=== PATIENT | female | born 1945 | race Caucasian/White ===

== ENCOUNTER 2017-12-22 07:58 | Outpatient (CLI) | payer MEDICARE ==
--- NOTE | 2017-12-22 12:19 | PET ---
PET CT: HISTORY: 72-year-old female with right breast cancer. Exam requested for staging. Patient's last chemotherapy was yesterday. TECHNIQUE: PET scanning with CT attenuation correction was performed from the base of the brain through the prox imal thighs following the intravenous administration of 12.3 mCi F18-FDG in the left antecubital glenn a. Imaging performed after an uptake interval of 50 minutes. COMPARISON: None. FINDINGS: There is mild FDG localization in the right breast mass with a SUV of 2.1. Hypermetabolic mediastinal lymph nodes are seen with a SUV of 3.2. Hypermetabolic right axillary lymph nodes are seen with a BRAGG V of 2.7. No laura hypermetabolism is seen in the neck, abdomen, or pelvis. No hypermetabolic liver, adrenal, o r skeletal lesions are identified. There is physiologic activity in the GI and tracts, heart, and visualized portions of the brain. The CT scan used for attenuation correction demonstrates a moderate size right pleural effusion, smal l hiatal hernia, and uterine fibroids. IMPRESSION: 1. Right breast cancer with right axillary and mediastinal lymph laura metastasis. 2. Moderate size right pleural effusion. 3. Small hiatal hernia. 4. Uterine fibroids. POS: [facility]
== END 2017-12-22 07:59 | disposition home or self-care (01) ==
LOC: PET 07:58
PROVIDERS: ATTEND Internal Medicine Hematology & Oncology
DX: C50.911 Malignant neoplasm of unspecified site of right female breast (principal); C77.3 Secondary and unspecified malignant neoplasm of axilla and upper limb lymph nodes; C77.1 Secondary and unspecified malignant neoplasm of intrathoracic lymph nodes; J90 Pleural effusion, not elsewhere classified
CPT/HCPCS: 78815; A9552

== ENCOUNTER 2018-04-13 07:50 | Outpatient (CLI) | payer MEDICARE ==
--- NOTE | 2018-04-13 12:28 | PET ---
PET SCAN WITH CT ATTENUATION CORRECTION: HISTORY: Right breast cancer. Patient is undergoing chemotherapy. COMPARISON: 12/22/17. TECHNIQUE: PET scan with CT attenuation correction is performed from the base of the brain to the proximal thigh s following the intravenous administration of 11.2 mCi F18-FDG. FINDINGS: HEAD/NECK: No abnormal FDG localization. CHEST: CT used for attenuation correction redemonstrates a moderate right-sided effusion with consolidation of the right lung secondary to atelectasis. Hiatal hernia is noted. There is no abnormal FDG localiza tion in the right breast, at the level of the calcification and soft tissue density noted on the prev ious exam. There is mild FDG avidity involving the skin of the right breast suggesting post treatment change with a maximum SUV of 2.2. The previously noted hypermetabolic activity involving the lymph n odes is no longer evident. There is no evidence of abnormal FDG localization in the right axillary ly mph nodes. Currently, the maximum SUV is 1.5. There is no evidence of FDG avidity with regards to the mediastinal lymph nodes. The previously noted FDG avidity has resolved. ABDOMEN/PELVIS: No abnormal FDG localization. CT used for attenuation correction demonstrates calcified uterine fibro ids. OSSEOUS STRUCTURES: There is abnormal FDG localization posterior to right facet at the T12 level. This abnormal FDG local ization is in the paraspinal muscles and may be due to muscular activity, rather than a metastatic de posit that is intramuscular in location. IMPRESSION: 1. Interval decrease in FDG avidity involving a mass in the right breast and right axilla. 2. Redemonstration of a pleural effusion in the right hemithorax. 3. Nonspecific FDG avidity in the posterior right paraspinal muscles at the T12 level, likely due to muscular contraction. POS: [facility]
== END 2018-04-13 07:51 | disposition home or self-care (01) ==
LOC: PET 07:50
PROVIDERS: ATTEND Internal Medicine Hematology & Oncology
DX: C50.911 Malignant neoplasm of unspecified site of right female breast (principal); N63.10 Unspecified lump in the right breast, unspecified quadrant; J90 Pleural effusion, not elsewhere classified
CPT/HCPCS: 78815; A9552

== ENCOUNTER → 2018-07-11 | Day surgery (SDC) | payer MEDICARE ==
[~2018-07-11] MED LIST: Ondansetron 2MG/ML MDV 10 MG, Dexamethasone Sod Phosphate 10 MG in Sodium Chloride 0.9%... IVP SCH; SODIUM CHLORIDE 0.9% IVPB SCH; Sodium Chloride 0.9% 20 ML ONE; [UNRECOGNIZED DRUG - OTHER] IVPB SCH; [UNRECOGNIZED DRUG - OTHER] IVPB SCH
[2018-07-11 15:09] VITALS: BP 133/59; TEMP 98
== END ==
LOC: ONC/OP 14:26
PROVIDERS: ATTEND Internal Medicine Hematology & Oncology
DX: Z51.11 Encounter for antineoplastic chemotherapy (principal); C50.511 Malignant neoplasm of lower-outer quadrant of right female breast
CPT/HCPCS: 96375; 96409; J1100; J1642; J2405; J3490; J7050; J9179

== ENCOUNTER 2018-07-18 11:21 | Day surgery (SDC) | payer MEDICARE ==
[~2018-07-18 11:21] MED LIST changes: -Sodium Chloride 0.9% 20 ML ONE; -[UNRECOGNIZED DRUG - OTHER] IVPB SCH
[2018-07-18] MEDS ORDERED: Sodium Chloride 0.9% 20 ML ONE (11:25)
[2018-07-18 12:58] VITALS: BP 130/76; TEMP 97.8
== END 2018-07-18 15:11 | disposition home or self-care (01) ==
LOC: ONC/OP 11:21
PROVIDERS: ATTEND Internal Medicine Hematology & Oncology
DX: Z51.11 Encounter for antineoplastic chemotherapy (principal); C50.511 Malignant neoplasm of lower-outer quadrant of right female breast
CPT/HCPCS: 96375; 96409; J1100; J1642; J2405; J3490; J7050; J9179

== ENCOUNTER 2018-08-01 10:52 | Day surgery (SDC) | payer MEDICARE ==
[2018-08-01] MEDS ORDERED: Sodium Chloride 0.9% 20 ML ONE (10:55)
== END 2018-08-01 13:11 | disposition home or self-care (01) ==
LOC: ONC/OP 10:52
PROVIDERS: ATTEND Internal Medicine Hematology & Oncology
DX: Z51.11 Encounter for antineoplastic chemotherapy (principal); C50.511 Malignant neoplasm of lower-outer quadrant of right female breast
CPT/HCPCS: 96375; 96413; J1100; J1642; J2405; J3490; J9179

== ENCOUNTER 2018-08-08 11:03 | Day surgery (SDC) | payer MEDICARE ==
[~2018-08-08 11:03] MED LIST changes: -Ondansetron 2MG/ML MDV 10 MG, Dexamethasone Sod Phosphate 10 MG in Sodium Chloride 0.9%... IVP SCH; +Ondansetron 2MG/ML MDV 10 MG, Dexamethasone Sod Phosphate 10 MG in Sodium Chloride 0.9%... IVPB SCH
[2018-08-08] MEDS ORDERED: Sodium Chloride 0.9% 20 ML ONE (11:07)
[2018-08-08 14:11] VITALS: BP 118/58; TEMP 98.4
== END 2018-08-08 14:38 | disposition home or self-care (01) ==
LOC: ONC/OP 11:03
PROVIDERS: ATTEND Internal Medicine Hematology & Oncology
DX: Z51.11 Encounter for antineoplastic chemotherapy (principal); C50.511 Malignant neoplasm of lower-outer quadrant of right female breast
CPT/HCPCS: 96375; 96413; J1100; J1642; J2405; J3490; J9179

== ENCOUNTER 2018-08-22 12:26 | Day surgery (SDC) | payer MEDICARE ==
[~2018-08-22 12:26] MED LIST changes: +Dexamethasone Sod Phosphate 10 MG, Ondansetron 2MG/ML MDV 10 MG in Sodium Chloride 0.9%... IVPB SCH; -Ondansetron 2MG/ML MDV 10 MG, Dexamethasone Sod Phosphate 10 MG in Sodium Chloride 0.9%... IVPB SCH
[2018-08-22 12:50] VITALS: BP 141/65; TEMP 98.2
[2018-08-22] MEDS ORDERED: Sodium Chloride 0.9% 20 ML ONE ×2 (13:07→14:12)
[2018-08-22] MEDS ORDERED: Sodium Chloride 0.9% 200 ML ONE (13:22)
== END 2018-08-22 15:47 | disposition home or self-care (01) ==
LOC: ONC/OP 12:26
PROVIDERS: ATTEND Internal Medicine Hematology & Oncology
DX: Z51.11 Encounter for antineoplastic chemotherapy (principal); C50.511 Malignant neoplasm of lower-outer quadrant of right female breast
CPT/HCPCS: 96375; 96413; J1100; J1642; J2405; J3490; J9179

== ENCOUNTER 2018-08-29 11:01 | Day surgery (SDC) | payer MEDICARE ==
[2018-08-29] MEDS ORDERED: Sodium Chloride 0.9% 20 ML ONE (11:13)
[2018-08-29 11:30] VITALS: BP 122/59; TEMP 98.8
== END 2018-08-29 13:22 | disposition home or self-care (01) ==
LOC: ONC/OP 11:01
PROVIDERS: ATTEND Internal Medicine Hematology & Oncology
DX: Z51.11 Encounter for antineoplastic chemotherapy (principal); C50.511 Malignant neoplasm of lower-outer quadrant of right female breast
CPT/HCPCS: 96375; 96413; J1100; J1642; J2405; J3490; J9179

== ENCOUNTER 2018-09-12 10:57 | Day surgery (SDC) | payer MEDICARE ==
[2018-09-12] MEDS ORDERED: Sodium Chloride 0.9% 20 ML ONE (11:10)
[2018-09-12 11:26] VITALS: BP 124/57; TEMP 98.6
== END 2018-09-12 12:26 | disposition home or self-care (01) ==
LOC: ONC/OP 10:57
PROVIDERS: ATTEND Internal Medicine Hematology & Oncology
DX: Z51.11 Encounter for antineoplastic chemotherapy (principal); C50.511 Malignant neoplasm of lower-outer quadrant of right female breast
CPT/HCPCS: 96375; 96409; J1100; J1642; J2405; J3490; J9179

== ENCOUNTER 2018-09-19 11:13 | Day surgery (SDC) | payer MEDICARE ==
[2018-09-19] MEDS ORDERED: Sodium Chloride 0.9% 20 ML ONE (11:18)
[2018-09-19] MEDS ORDERED: [UNRECOGNIZED DRUG - OTHER] IVPB SCH (11:30)
[2018-09-19] MEDS ORDERED: SODIUM CHLORIDE 0.9% IVPB SCH ×2 (11:30→11:45)
[2018-09-19] MEDS ORDERED: Ondansetron HCl/PF 10 MG, Dexamethasone 10 MG in Sodium Chloride 0.9% 50 ML IVPB SCH (11:30)
[2018-09-19] MEDS ORDERED: [UNRECOGNIZED DRUG - OTHER] IVPB SCH (11:45)
[2018-09-19 12:15] VITALS: BP 133/63; TEMP 99.3
== END 2018-09-19 13:11 | disposition home or self-care (01) ==
LOC: ONC/OP 11:13
PROVIDERS: ATTEND Internal Medicine Hematology & Oncology
DX: Z51.11 Encounter for antineoplastic chemotherapy (principal); C50.511 Malignant neoplasm of lower-outer quadrant of right female breast; Z17.1 Estrogen receptor negative status [ER-]
CPT/HCPCS: 96375; 96409; J1100; J1642; J2405; J3490; J9179

== ENCOUNTER 2018-10-03 12:37 | Day surgery (SDC) | payer MEDICARE ==
[~2018-10-03 12:37] MED LIST changes: +[UNRECOGNIZED DRUG - OTHER] IVPB SCH
[2018-10-03] MEDS ORDERED: Sodium Chloride 0.9% 20 ML ONE (12:40)
[2018-10-03 13:36] VITALS: BP 124/63; TEMP 97.7
== END 2018-10-03 13:36 | disposition home or self-care (01) ==
LOC: ONC/OP 12:37
PROVIDERS: ATTEND Internal Medicine Hematology & Oncology
DX: Z51.11 Encounter for antineoplastic chemotherapy (principal); C50.511 Malignant neoplasm of lower-outer quadrant of right female breast
CPT/HCPCS: 96376; 96409; J1100; J1642; J2405; J3490; J9179

== ENCOUNTER 2018-10-10 10:57 | Day surgery (SDC) | payer MEDICARE ==
[~2018-10-10 10:57] MED LIST changes: -[UNRECOGNIZED DRUG - OTHER] IVPB SCH
[2018-10-10] MEDS ORDERED: Sodium Chloride 0.9% 20 ML ONE (11:05)
[2018-10-10 12:28] VITALS: BP 117/58; TEMP 98.3
== END 2018-10-10 13:39 | disposition home or self-care (01) ==
LOC: ONC/OP 10:57
PROVIDERS: ATTEND Internal Medicine Hematology & Oncology
DX: Z51.11 Encounter for antineoplastic chemotherapy (principal); C50.511 Malignant neoplasm of lower-outer quadrant of right female breast; Z17.1 Estrogen receptor negative status [ER-]
CPT/HCPCS: 96375; 96409; J1100; J1642; J2405; J3490; J9179

== ENCOUNTER 2018-10-24 10:55 | Day surgery (SDC) | payer MEDICARE ==
[~2018-10-24 10:55] MED LIST changes: -Dexamethasone Sod Phosphate 10 MG, Ondansetron 2MG/ML MDV 10 MG in Sodium Chloride 0.9%... IVPB SCH; +[UNRECOGNIZED DRUG - OTHER] IVPB SCH
[2018-10-24] MEDS ORDERED: Sodium Chloride 0.9% 20 ML ONE (11:03)
[2018-10-24] MEDS ORDERED: Dexamethasone Sod Phosphate 10 MG, Ondansetron 2MG/ML MDV 10 MG in Sodium Chloride 0.9%... IVPB SCH (11:45)
[2018-10-24 12:01] VITALS: BP 140/63; TEMP 98.1
== END 2018-10-24 13:26 | disposition home or self-care (01) ==
LOC: ONC/OP 10:55
PROVIDERS: ATTEND Internal Medicine Hematology & Oncology
DX: Z51.11 Encounter for antineoplastic chemotherapy (principal); C50.511 Malignant neoplasm of lower-outer quadrant of right female breast; Z17.1 Estrogen receptor negative status [ER-]
CPT/HCPCS: 96375; 96409; J1100; J1642; J2405; J3490; J9179

== ENCOUNTER 2018-10-31 10:46 | Day surgery (SDC) | payer MEDICARE ==
[~2018-10-31 10:46] MED LIST changes: +Dexamethasone Sod Phosphate 10 MG, Ondansetron 2MG/ML MDV 10 MG in Sodium Chloride 0.9%... IVPB SCH; -[UNRECOGNIZED DRUG - OTHER] IVPB SCH
[2018-10-31] MEDS ORDERED: Sodium Chloride 0.9% 20 ML ONE (10:51)
[2018-10-31 11:07] VITALS: BP 127/59; TEMP 98.3
== END 2018-10-31 12:44 | disposition home or self-care (01) ==
LOC: ONC/OP 10:46
PROVIDERS: ATTEND Internal Medicine Hematology & Oncology
DX: Z51.11 Encounter for antineoplastic chemotherapy (principal); C50.511 Malignant neoplasm of lower-outer quadrant of right female breast
CPT/HCPCS: 96375; 96413; J1100; J1642; J2405; J3490; J9179

== ENCOUNTER 2018-11-14 14:23 | Day surgery (SDC) | payer MEDICARE ==
[2018-11-14] MEDS ORDERED: Sodium Chloride 0.9% 20 ML ONE (14:29)
== END 2018-11-14 15:28 | disposition home or self-care (01) ==
LOC: ONC/OP 14:23
PROVIDERS: ATTEND Internal Medicine Hematology & Oncology
DX: Z51.11 Encounter for antineoplastic chemotherapy (principal); C50.511 Malignant neoplasm of lower-outer quadrant of right female breast; Z17.1 Estrogen receptor negative status [ER-]
CPT/HCPCS: 96375; 96409; J1100; J1642; J2405; J3490; J9179

== ENCOUNTER 2018-11-27 13:26 | Outpatient (CLI) | payer MEDICARE ==
--- NOTE | 2018-11-27 14:45 | PET ---
Exam: Whole body PET/CT HISTORY: Right breast cancer. Evaluate for response to treatment. COMPARISON: 04/13/2018 TECHNIQUE: PET scan with CT attenuation correction was performed from the base of the brain to the pr oximal thighs following the intravenous administration of 11.5 m of [id number] FINDINGS: Head and neck: No abnormal FDG localization CHEST: CT used for attenuation correction demonstrate a stable right sided pleural effusion. Stable h iatal hernia. There does not appear to be any abnormal FDG localization in the lung parenchyma or mediastinum There is increased FDG avidity involving enlarged right axillary lymph nodes. The degree of FDG avidi ty in the degree of lymphadenopathy appears to have slightly progressed when compared to the previous examination. Currently, the maximum SUV is between 2.1 and 2.4, which is near the upper limi ts of normal. Nevertheless, largest lymph node in the right axilla that does not have a fatty hilum currently measures 1.1 x 1.1 cm. Previously, this lymph node measured 0.7 x 0.7 cm. There is interval development of a new lymph node measuring 1.1 x 1.1 cm. Currently, the maximum SUV of this lymph node is 1.0. There continues to be FDG avidity involving the right breast dermis maximum SUV of 2.1. No abnormal FDG avidity at the level of the postoperative site. Abdomen and pelvis: No abnormal FDG avidity. CT used for attenuation correction demonstrates a uterin e fibroid. Osseous structures: No abnormal FDG avidity. Stable nonspecific FDG avidity in the right paraspinal r egion along the distal thoracic spine. IMPRESSION: 1. No evidence of FDG avidity at the operative site. 2. Interval development of a nonhypermetabolic lymph node in the right axilla. 3. Interval slight increase in size of a upper normal FDG avidity lymph node in the right axilla. Con tinued surveillance is recommended.
== END 2018-11-27 13:27 | disposition home or self-care (01) ==
LOC: PET 13:26
PROVIDERS: ATTEND Internal Medicine Hematology & Oncology
DX: C50.919 Malignant neoplasm of unspecified site of unspecified female breast (principal)
CPT/HCPCS: 78815; A9552

== ENCOUNTER 2018-12-05 09:05 | Day surgery (SDC) | payer MEDICARE ==
[2018-12-05] MEDS ORDERED: Sodium Chloride 0.9% 20 ML ONE (09:16)
[2018-12-05 09:51] VITALS: BP 141/65; TEMP 97.7
== END 2018-12-05 14:09 | disposition home or self-care (01) ==
LOC: ONC/OP 09:05
PROVIDERS: ATTEND Internal Medicine Hematology & Oncology
DX: Z51.11 Encounter for antineoplastic chemotherapy (principal); C50.511 Malignant neoplasm of lower-outer quadrant of right female breast; Z17.1 Estrogen receptor negative status [ER-]
CPT/HCPCS: 96375; 96409; J1100; J1642; J2405; J3490; J9179

== ENCOUNTER 2018-12-12 09:39 | Day surgery (SDC) | payer MEDICARE ==
[2018-12-12] MEDS ORDERED: Sodium Chloride 0.9% 20 ML ONE (09:44)
[2018-12-12 09:59] VITALS: BP 133/60; TEMP 98.2
== END 2018-12-12 10:36 | disposition home or self-care (01) ==
LOC: ONC/OP 09:39
PROVIDERS: ATTEND Internal Medicine Hematology & Oncology
DX: Z51.11 Encounter for antineoplastic chemotherapy (principal); C50.511 Malignant neoplasm of lower-outer quadrant of right female breast; Z17.1 Estrogen receptor negative status [ER-]
CPT/HCPCS: 96375; 96409; J1100; J1642; J2405; J3490; J9179

== ENCOUNTER 2018-12-26 13:59 | Day surgery (SDC) | payer MEDICARE ==
[2018-12-26] MEDS ORDERED: Sodium Chloride 0.9% 20 ML ONE (14:07)
[2018-12-26 15:06] VITALS: BP 109/58; TEMP 98.5
== END 2018-12-26 16:34 | disposition home or self-care (01) ==
LOC: ONC/OP 13:59
PROVIDERS: ATTEND Internal Medicine Hematology & Oncology
DX: Z51.11 Encounter for antineoplastic chemotherapy (principal); C50.511 Malignant neoplasm of lower-outer quadrant of right female breast
CPT/HCPCS: 96375; 96409; J1100; J1642; J2405; J3490; J9179

== ENCOUNTER 2019-01-02 10:28 | Day surgery (SDC) | payer MEDICARE ==
[2019-01-02] MEDS ORDERED: Sodium Chloride 0.9% 20 ML ONE (10:43)
[2019-01-02 11:54] VITALS: BP 135/62; TEMP 98
== END 2019-01-02 11:56 | disposition home or self-care (01) ==
LOC: ONC/OP 10:28
PROVIDERS: ATTEND Internal Medicine Hematology & Oncology
DX: Z51.11 Encounter for antineoplastic chemotherapy (principal); C50.511 Malignant neoplasm of lower-outer quadrant of right female breast
CPT/HCPCS: 96375; 96413; J1100; J1642; J2405; J3490; J9179

== ENCOUNTER 2019-01-16 10:41 | Day surgery (SDC) | payer MEDICARE ==
[2019-01-16] MEDS ORDERED: Sodium Chloride 0.9% 20 ML ONE (10:48)
[2019-01-16 10:57] VITALS: BP 131/56; TEMP 97.9
== END 2019-01-16 11:46 | disposition home or self-care (01) ==
LOC: ONC/OP 10:41
PROVIDERS: ATTEND Internal Medicine Hematology & Oncology
DX: Z51.11 Encounter for antineoplastic chemotherapy (principal); C50.511 Malignant neoplasm of lower-outer quadrant of right female breast; Z17.1 Estrogen receptor negative status [ER-]
CPT/HCPCS: 96375; 96409; J1100; J1642; J2405; J3490; J9179

== ENCOUNTER 2019-01-23 10:24 | Day surgery (SDC) | payer MEDICARE ==
[2019-01-23] MEDS ORDERED: Sodium Chloride 0.9% 20 ML ONE (11:00)
[2019-01-23 12:27] VITALS: BP 107/54; TEMP 98.9
== END 2019-01-23 12:31 | disposition home or self-care (01) ==
LOC: ONC/OP 10:24
PROVIDERS: ATTEND Internal Medicine Hematology & Oncology
DX: Z51.11 Encounter for antineoplastic chemotherapy (principal); C50.511 Malignant neoplasm of lower-outer quadrant of right female breast; Z17.1 Estrogen receptor negative status [ER-]
CPT/HCPCS: 96375; 96409; J1100; J1642; J2405; J3490; J9179

== ENCOUNTER 2019-12-04 10:12 | Day surgery (SDC) | payer MEDICARE ==
[~2019-12-04 10:12] MED LIST changes: -Dexamethasone Sod Phosphate 10 MG, Ondansetron 2MG/ML MDV 10 MG in Sodium Chloride 0.9%... IVPB SCH; +Ondansetron 2MG/ML MDV 10 MG in Sodium Chloride 0.9% 50 ML IVPB SCH; +PACLitaxel Protein-Bound 200 MG in Admixture Fee 1 EACH IVPB SCH; -SODIUM CHLORIDE 0.9% IVPB SCH; -[UNRECOGNIZED DRUG - OTHER] IVPB SCH
[2019-12-04] MEDS ORDERED: Sodium Chloride 0.9% 20 ML ONE (10:23)
[2019-12-04 11:28] VITALS: BP 147/77; TEMP 97.9
== END 2019-12-04 12:42 | disposition home or self-care (01) ==
LOC: ONC/OP 10:12
PROVIDERS: ATTEND Internal Medicine Hematology & Oncology
DX: Z51.11 Encounter for antineoplastic chemotherapy (principal); C50.511 Malignant neoplasm of lower-outer quadrant of right female breast
CPT/HCPCS: 36415; 80053; 82248; 83615; 84100; 84550; 96375; 96413; J2405

== ENCOUNTER 2019-12-11 09:57 | Day surgery (SDC) | payer MEDICARE ==
[2019-12-11 10:37] VITALS: BP 172/75
[2019-12-11] MEDS ORDERED: Sodium Chloride 0.9% 20 ML ONE (10:53)
== END 2019-12-11 11:52 | disposition home or self-care (01) ==
LOC: ONC/OP 09:57
PROVIDERS: ATTEND Internal Medicine Hematology & Oncology
DX: Z51.11 Encounter for antineoplastic chemotherapy (principal); C50.511 Malignant neoplasm of lower-outer quadrant of right female breast
CPT/HCPCS: 96375; 96413; J2405

== ENCOUNTER 2019-12-18 11:01 | Day surgery (SDC) | payer MEDICARE ==
[~2019-12-18 11:01] MED LIST changes: -PACLitaxel Protein-Bound 200 MG in Admixture Fee 1 EACH IVPB SCH; +PACLitaxel Protein-Bound 200 MG in IV Admixture Fee-Chemo 1 UNITS IVPB SCH
[2019-12-18] MEDS ORDERED: Sodium Chloride 0.9% 20 ML ONE (11:08)
== END 2019-12-18 12:56 | disposition home or self-care (01) ==
LOC: ONC/OP 11:01
PROVIDERS: ATTEND Internal Medicine Hematology & Oncology
DX: Z51.11 Encounter for antineoplastic chemotherapy (principal); C50.511 Malignant neoplasm of lower-outer quadrant of right female breast
CPT/HCPCS: 96375; 96413; J2405

== ENCOUNTER 2020-01-01 11:38 | Day surgery (SDC) | payer MEDICARE ==
[2020-01-01 12:12] VITALS: BP 125/57; TEMP 97.7
== END 2020-01-01 15:21 | disposition home or self-care (01) ==
LOC: ONC/OP 11:38
PROVIDERS: ATTEND Internal Medicine Hematology & Oncology
DX: Z51.11 Encounter for antineoplastic chemotherapy (principal); C50.511 Malignant neoplasm of lower-outer quadrant of right female breast
CPT/HCPCS: 96375; 96413; J2405

== ENCOUNTER 2020-01-15 11:07 | Day surgery (SDC) | payer MEDICARE ==
[2020-01-15] MEDS ORDERED: Sodium Chloride 0.9% 20 ML ONE (11:16)
== END 2020-01-15 13:18 | disposition home or self-care (01) ==
LOC: ONC/OP 11:07
PROVIDERS: ATTEND Internal Medicine Hematology & Oncology
DX: Z51.11 Encounter for antineoplastic chemotherapy (principal); C50.511 Malignant neoplasm of lower-outer quadrant of right female breast; Z17.1 Estrogen receptor negative status [ER-]
CPT/HCPCS: 96375; 96413; J2405

== ENCOUNTER 2020-01-22 11:04 | Day surgery (SDC) | payer MEDICARE | END 2020-01-22 13:08 | disposition home or self-care (01) | LOC: ONC/OP 11:04 | PROVIDERS: ATTEND Internal Medicine Hematology & Oncology | DX: Z51.11 Encounter for antineoplastic chemotherapy (principal); C50.511 Malignant neoplasm of lower-outer quadrant of right female breast | CPT/HCPCS: 96375; 96413; J2405 ==

== ENCOUNTER 2020-01-28 14:25 | Outpatient (CLI) | payer MEDICARE ==
--- NOTE | 2020-01-28 14:57 | RAD ---
PA AND LATERAL CHEST: HISTORY: Pleural effusion. COMPARISON: 09/17/2017. FINDINGS: Right chest tube in place with the tip extending into the right apex. Very extensive pleural and par enchymal changes throughout the right lung with very little aerated lung in the mid upper aspect. He art size is within normal limits. The left lung appears to be clear of acute process. Left ICD. IMPRESSION: Very extensive pleural and parenchymal opacity changes throughout the right chest with very minimal r esidual aerated lung. Possible slight shift of the cardiac silhouette to the left. No evidence for other significant acute process. POS: [facility]
== END 2020-01-28 14:26 | disposition home or self-care (01) ==
LOC: BICRAD 14:25
PROVIDERS: ATTEND Thoracic Surgery (Cardiothoracic Vascular Surgery)
DX: J90 Pleural effusion, not elsewhere classified (principal); R91.8 Other nonspecific abnormal finding of lung field
CPT/HCPCS: 71046

== ENCOUNTER 2020-02-05 11:05 | Day surgery (SDC) | payer MEDICARE ==
[2020-02-05] MEDS ORDERED: Sodium Chloride 0.9% 20 ML ONE (11:25)
[2020-02-05 14:31] VITALS: BP 131/71; TEMP 98.6
== END 2020-02-05 16:17 | disposition home or self-care (01) ==
LOC: ONC/OP 11:05 → ONC 11:08 → ONC/OP 16:17
PROVIDERS: ATTEND Internal Medicine Hematology & Oncology
DX: Z51.11 Encounter for antineoplastic chemotherapy (principal); C50.511 Malignant neoplasm of lower-outer quadrant of right female breast
CPT/HCPCS: 80053; 82248; 83615; 84100; 84550; 96375; 96413; J2405; J9264

== ENCOUNTER 2020-02-10 17:00 | Inpatient (IN) | payer MEDICARE ==
[2020-02-12] MEDS ORDERED: Fentanyl 100 MCG/2 ML VIAL ONE ×2 (08:41)
[2020-02-12] MEDS ORDERED: EPINEPHrine 1 MG/ML AMP ONE (08:43)
[2020-02-12] MEDS ORDERED: Rocuronium Bromide 10 MG/ML (10ML VIAL) ONE (08:43)
[2020-02-12] MEDS ORDERED: Lidocaine 1% PF 5 ML VIAL ONE (08:43)
[2020-02-12] MEDS ORDERED: Dexamethasone 20 MG/5 ML VIAL ONE (08:43)
[2020-02-12] MEDS ORDERED: Ondansetron PF 4 MG/2 ML Vial ONE (08:43)
[2020-02-12] MEDS ORDERED: PROPOFOL 200 MG/20 ML VIAL ONE (08:43)
[2020-02-12] MEDS ORDERED: Bupivacaine PF 0.5% 30 ML VIAL ONE (08:43)
[2020-02-12] MEDS ORDERED: Glycopyrrolate 0.2 MG/ML 5 ML SYRINGE ONE (08:43)
--- NOTE | 2020-02-12 11:18 | RAD ---
EXAM: CHEST ONE VIEW HISTORY: Postoperative. COMPARISON: 01/28/2020 FINDINGS: Cardiac pacemaking device is again noted in place. Previously seen right-sided thoracostomy tube has been removed. A new right-sided thoracostomy tube is now present with tip overlying the right suprahilar region. Previously noted pleural fluid is no longer seen, but there is now gas present wit hin the pleural space. There is consolidation involving the right lung may be related to combination of volume loss and infiltrate. Left lung is clear. No other interval change. IMPRESSION: Interval replacement of right-sided thoracostomy tube with resolution of previously seen right pleura l fluid. There is now gas seen within the pleural space in the previously seen area of pleural fluid. These findings could be related to ex vacuo pneumothorax secondary to incomplete expansion of the right lung. The parenchymal opacities seen within the right lung may related to volume loss, but associated infiltrate is a possibility.
--- NOTE | 2020-02-12 11:55 | OP ---
DATE OF PROCEDURE: 02/12/2020 PREOPERATIVE DIAGNOSIS: Recurrent right malignant pleural effusion. POSTOPERATIVE DIAGNOSIS: Recurrent right malignant pleural effusion. PROCEDURES PERFORMED: 1. Right thoracoscopy with decortication of the right lung. 2. Removal of right PleurX catheter. 3. Replacement of right PleurX catheter. ANESTHESIA: General endotracheal, Dr. Alexandr Coe. ESTIMATED BLOOD LOSS: Minimal. DRAINS: PleurX catheter. SPECIMENS: None. DESCRIPTION OF PROCEDURE: After consent was obtained, patient brought to the operating room, placed in supine position on the operating table. Appropriate central line was placed and general endotracheal anesthesia was induced. Flexible fiberoptic bronchoscopy was used to position the endotracheal tube. The patient was placed in the left lateral decubitus position. Joints were appropriately padded. SCDs were used. Right chest wall was prepped and draped in the usual sterile fashion. A skin incision was made for 5 mm port site 2 rib spaces below the entry site for the PleurX. On inserting the thoracoscope, there was a significant amount of fluid. A 2nd port site was created and suction passed into this port site and 1500 mL of fluid was evacuated. Once the fluid was evacuated, we could see that the PleurX catheter become encased in a rind. The PleurX was then removed. The lung was freed from the chest wall and was expanded under direct vision and filled the chest cavity nicely. PleurX catheter was then tunneled under the skin. The cuff was positioned and the catheter inserted and positioned manually using the thoracoscope along the diaphragm. The lung was again expanded under direct vision. The thoracoscope and its sheath were removed. The wounds were closed in layers. A rib block was then performed with 0.5% Marcaine with epinephrine. Sterile dressings were applied. Once we put the PleurX to suction, it appeared that there was a small air leak. We brought an [facility] in and connected it and there was indeed an air leak. The patient was transferred to the recovery room once she was extubated. We will leave her PleurX catheter to suction for right now and see what happens with the air leak over the next couple of hours. If it persists, we will keep her overnight. Job ID: [id number]
[2020-02-12] MEDS ORDERED: Acetaminophen 325 MG TAB PO PRN (15:07)
[2020-02-12] MEDS ORDERED: Ondansetron PF 4 MG/2 ML Vial IVP PRN (15:07)
[2020-02-12] MEDS: Famotidine 20 MG TAB PO SCH (21:42)
[2020-02-12] MEDS: Carvedilol 6.25 MG TAB PO SCH (21:42)
[2020-02-12 22:41] VITALS: BMI 21.9
[2020-02-13] MEDS: Carvedilol 6.25 MG TAB PO SCH (07:56)
[2020-02-13] MEDS: Famotidine 20 MG TAB PO SCH (07:57)
[2020-02-13] MEDS ORDERED: Spironolactone 25 MG TAB PO SCH (08:00)
[2020-02-13] MEDS ORDERED: Furosemide 40 MG TAB PO SCH (09:00)
[2020-02-13] MEDS ORDERED: Losartan 25 MG TAB PO SCH (09:00)
[2020-02-13] MEDS ORDERED: Cholecalciferol 1,000 UNITS (25 MCG) TAB PO SCH (09:00)
[2020-02-13 15:38] VITALS: BP 117/72; TEMP 97.7
--- NOTE | 2020-02-14 08:16 | DIS ---
DATE OF ADMISSION: 02/12/2020 DATE OF DISCHARGE: 02/13/2020 DIAGNOSIS: Malignant right pleural effusion with malfunctioning PleurX catheter. PROCEDURE: Right thoracoscopy with removal and subsequent replacement of PleurX catheter. DISCHARGE MEDICATIONS: Unchanged. DESCRIPTION OF HOSPITAL STAY: Ms. Harding was brought in for PleurX catheter that had not been working at home and reaccumulation of large right pleural effusion. She underwent thoracoscopy and evacuation of 1.5 L of fluid from her chest. We replaced her PleurX catheter, kept her overnight and then sending her home today. She has already had PleurX bottles delivered to her house and understands the functionality of the PleurX catheter. Job ID: [id number]
== END 2020-02-13 16:00 | disposition home or self-care (01) | DRG 164 ==
LOC: SURG A 02-12 07:02
PROVIDERS: ADMIT Thoracic Surgery (Cardiothoracic Vascular Surgery); ATTEND Thoracic Surgery (Cardiothoracic Vascular Surgery)
PROC: 0BNK4ZZ Release Right Lung, Percutaneous Endoscopic Approach (ICD-10-PCS; principal; 2020-02-12)
PROC: 0W9940Z Drainage of Right Pleural Cavity with Drainage Device, Percutaneous Endoscopic Approach (ICD-10-PCS; 2020-02-12)
DX: C34.91 Malignant neoplasm of unspecified part of right bronchus or lung (principal); J91.0 Malignant pleural effusion; J93.82 Other air leak; I31.3 Pericardial effusion (noninflammatory); J98.11 Atelectasis; Z20.822 Contact with and (suspected) exposure to COVID-19; I10 Essential (primary) hypertension; K21.9 Gastro-esophageal reflux disease without esophagitis; C50.911 Malignant neoplasm of unspecified site of right female breast; Z95.1 Presence of aortocoronary bypass graft; Z79.899 Other long term (current) drug therapy; Z01.818 Encounter for other preprocedural examination; R91.8 Other nonspecific abnormal finding of lung field
CPT/HCPCS: 71045; 71250; 80048; 85027; 87635; 93005; 93010; J0171; J0690; J1100; J2405; J2704; J3010; S0020; U0003

== ENCOUNTER 2020-02-10 17:31 | Outpatient (CLI) | payer MEDICARE ==
--- NOTE | 2020-02-10 10:37 | CT ---
EXAM: CT Chest WO Con PROVIDED CLINICAL HISTORY: Pleural effusion COMPARISON: PET/CT 11/27/2018 FINDINGS: The heart, pericardium and great vessels are suboptimally evaluated in the absence of IV contrast mat erial. Left subclavian cardiac pacing device and abandoned right-sided pacing wires are demonstrated. There are multiple foci of soft tissue density within the paratracheal regions, suspicious for enlarg ed lymph nodes. Evaluation is limited in the absence of IV contrast material. The lymph node enlargement in the right axillary region described on the prior PET/CT is not evident on the current study. There is a large degree of right pleural fluid producing atelectasis of almost the entirety of the ri ght lung. There is a pleural drainage catheter noted, the tip of which terminates in the region of the right lung apex. There is a small left pleural effusion and a small pericardial effusion. There is a new noncalcified nodule measuring about 4 mm at the superior segment of the left lower lob e. There is an additional smaller pleural-based nodular density slightly cranial and medial to this. There is no evidence for pneumothorax. The proximal airway appears patent and of normal caliber. The visualized portions of the upper abdomen demonstrate a grossly unremarkable unenhanced CT appeara nce. Interval changes of right mastectomy. The osseous structures demonstrate no concerning lytic or blastic lesions. IMPRESSION: 1. Large right pleural effusion with passive atelectasis of much of the right lung. 2. Small left pleural effusion and small pericardial effusion. 3. Suspected mediastinal lymph node enlargement. 4. New nodules within the superior segment of the left lower lobe, which could reflect metastatic dis ease. Follow-up is recommended.
[2020-02-10 18:13] LABS: Hemoglobin 10.1 g/dL (12.0-16.0); Mean Corpuscular HGB CONC 31.2 G/DL (32.0-36.0); Mean Corpuscular Hemoglobin 27.5 PG (27.0-33.0); Mean Corpuscular Volume 88.3 fl (80.0-100.0); Mean Platelet Volume 9.9 fl (7.4-10.4); Platelet Count 336 10x3/uL (130-400); RBC Distribution Width 17.8 % (11.5-14.5); Red Blood Cell (RBC) Count 3.67 10x6/uL (3.90-5.20)
[2020-02-10 18:31] LABS: Anion Gap 15 mmol/L (10-20); BUN (Urea Nitrogen) 17 mg/dL (9.8-20.1); Calc. Creatinine Clearance 0 mL/min (70-130); Calcium 9.1 mg/dL (7.8-10.44); Carbon Dioxide 24 mmol/L (23-31); Chloride 103 mmol/L (98-107); Glucose 116 mg/dL (83-110); Potassium 4.8 mmol/L (3.5-5.1); Sodium 137 mmol/L (136-145)
[2020-02-11 02:07] LABS: SARS-CoV-2 MS2 Positive; SARS-CoV-2 N Gene Negative; SARS-CoV-2 S Gene Negative; SARS-CoV-2 by NAA Not Detected (NotDetected); SARS-CoV-2 orf1ab Negative
== END 2020-02-10 17:32 | disposition home or self-care (01) ==
LOC: LABBT 17:31
PROVIDERS: ATTEND Thoracic Surgery (Cardiothoracic Vascular Surgery)
DX: Z01.818 Encounter for other preprocedural examination (principal); Z20.822 Contact with and (suspected) exposure to COVID-19; J91.0 Malignant pleural effusion; I31.3 Pericardial effusion (noninflammatory); J98.11 Atelectasis; R91.8 Other nonspecific abnormal finding of lung field
CPT/HCPCS: 71250; 80048; 85027; 93005; U0003; 87635; 93010

== ENCOUNTER 2020-02-19 11:21 | Day surgery (SDC) | payer MEDICARE ==
[2020-02-19] MEDS ORDERED: Sodium Chloride 0.9% 20 ML ONE (11:41)
[2020-02-19 11:42] VITALS: BP 109/53; TEMP 98.6
== END 2020-02-19 13:53 | disposition home or self-care (01) ==
LOC: ONC/OP 11:21
PROVIDERS: ATTEND Internal Medicine Hematology & Oncology
DX: Z51.11 Encounter for antineoplastic chemotherapy (principal); C50.511 Malignant neoplasm of lower-outer quadrant of right female breast
CPT/HCPCS: 96375; 96413; J2405

== ENCOUNTER 2020-03-04 12:33 | Day surgery (SDC) | payer MEDICARE | END 2020-03-04 16:09 | disposition home or self-care (01) | LOC: ONC/OP 12:33 | PROVIDERS: ATTEND Internal Medicine Hematology & Oncology | DX: Z51.11 Encounter for antineoplastic chemotherapy (principal); C50.511 Malignant neoplasm of lower-outer quadrant of right female breast | CPT/HCPCS: 36415; 80053; 82248; 83615; 84100; 84550; 96375; 96413; J2405 ==

== ENCOUNTER 2020-03-11 10:58 | Day surgery (SDC) | payer MEDICARE ==
[~2020-03-11 10:58] MED LIST changes: +Ondansetron 2MG/ML MDV 10 MG in Sodium Chloride 0.9% 50 ML IVP SCH; -Ondansetron 2MG/ML MDV 10 MG in Sodium Chloride 0.9% 50 ML IVPB SCH; +PACLitaxel Protein-Bound 200 MG in Admixture Fee 1 EACH IVPB SCH; -PACLitaxel Protein-Bound 200 MG in IV Admixture Fee-Chemo 1 UNITS IVPB SCH
[2020-03-11 11:18] VITALS: BP 120/57
== END 2020-03-11 13:03 | disposition home or self-care (01) ==
LOC: ONC/OP 10:58
PROVIDERS: ATTEND Internal Medicine Hematology & Oncology
DX: Z51.11 Encounter for antineoplastic chemotherapy (principal); C50.511 Malignant neoplasm of lower-outer quadrant of right female breast
CPT/HCPCS: 96375; 96413; J2405

== ENCOUNTER 2020-03-18 11:25 | Day surgery (SDC) | payer MEDICARE ==
[~2020-03-18 11:25] MED LIST changes: -Ondansetron 2MG/ML MDV 10 MG in Sodium Chloride 0.9% 50 ML IVP SCH; +Ondansetron 2MG/ML MDV 10 MG in Sodium Chloride 0.9% 50 ML IVPB SCH; -PACLitaxel Protein-Bound 200 MG in Admixture Fee 1 EACH IVPB SCH; +PACLitaxel Protein-Bound 200 MG in IV Admixture Fee-Chemo 1 UNITS IVPB SCH
[2020-03-18 11:45] VITALS: BP 112/54; TEMP 98.3
[2020-03-18] MEDS ORDERED: Sodium Chloride 0.9% 20 ML ONE (12:23)
== END 2020-03-18 14:03 | disposition home or self-care (01) ==
LOC: ONC/OP 11:25
PROVIDERS: ATTEND Internal Medicine Hematology & Oncology
DX: Z51.11 Encounter for antineoplastic chemotherapy (principal); C50.511 Malignant neoplasm of lower-outer quadrant of right female breast
CPT/HCPCS: 96375; 96413; J2405

== ENCOUNTER 2020-04-01 11:27 | Day surgery (SDC) | payer MEDICARE | END 2020-04-01 14:43 | disposition home or self-care (01) | LOC: ONC/OP 11:27 | PROVIDERS: ATTEND Internal Medicine Hematology & Oncology | DX: Z51.11 Encounter for antineoplastic chemotherapy (principal); C50.511 Malignant neoplasm of lower-outer quadrant of right female breast | CPT/HCPCS: 80053; 82248; 83615; 84100; 84550; 96375; 96413; J2405 ==

== ENCOUNTER 2020-04-15 11:15 | Day surgery (SDC) | payer MEDICARE ==
[2020-04-15] MEDS ORDERED: Sodium Chloride 0.9% 20 ML ONE (11:22)
[2020-04-15 11:31] VITALS: BP 104/53; TEMP 97.8
== END 2020-04-15 13:22 | disposition home or self-care (01) ==
LOC: ONC/OP 11:15
PROVIDERS: ATTEND Internal Medicine Hematology & Oncology
DX: Z51.11 Encounter for antineoplastic chemotherapy (principal); C50.511 Malignant neoplasm of lower-outer quadrant of right female breast
CPT/HCPCS: 96375; 96413; J2405

== ENCOUNTER 2020-04-29 10:42 | Day surgery (SDC) | payer MEDICARE ==
[2020-04-29 11:02] VITALS: BP 123/59; TEMP 97.9
== END 2020-04-29 12:34 | disposition home or self-care (01) ==
LOC: ONC/OP 10:42
PROVIDERS: ATTEND Internal Medicine Hematology & Oncology
DX: Z51.11 Encounter for antineoplastic chemotherapy (principal); C50.511 Malignant neoplasm of lower-outer quadrant of right female breast
CPT/HCPCS: 36415; 80053; 82248; 83615; 84100; 84550; 96375; 96413; J2405

== ENCOUNTER 2020-05-06 10:36 | Day surgery (SDC) | payer MEDICARE | END 2020-05-06 12:29 | disposition home or self-care (01) | LOC: ONC/OP 10:36 | PROVIDERS: ATTEND Internal Medicine Hematology & Oncology | DX: Z51.11 Encounter for antineoplastic chemotherapy (principal); C50.511 Malignant neoplasm of lower-outer quadrant of right female breast; Z17.1 Estrogen receptor negative status [ER-] | CPT/HCPCS: 96375; 96413; J2405 ==

== ENCOUNTER 2020-05-27 09:48 | Day surgery (SDC) | payer MEDICARE ==
[2020-05-27] MEDS ORDERED: Sodium Chloride 0.9% 20 ML ONE (09:58)
[2020-05-27 10:11] VITALS: BP 138/63; TEMP 97.6
== END 2020-05-27 15:26 | disposition home or self-care (01) ==
LOC: ONC/OP 09:48
PROVIDERS: ATTEND Internal Medicine Hematology & Oncology
DX: Z51.11 Encounter for antineoplastic chemotherapy (principal); C50.511 Malignant neoplasm of lower-outer quadrant of right female breast; R60.0 Localized edema; Z17.1 Estrogen receptor negative status [ER-]
CPT/HCPCS: 96375; 96413; J2405

== ENCOUNTER 2020-06-03 10:55 | Day surgery (SDC) | payer MEDICARE ==
[2020-06-03] MEDS ORDERED: Sodium Chloride 0.9% 20 ML ONE (10:57)
[2020-06-03 11:09] VITALS: BP 121/58; TEMP 97.9
== END 2020-06-03 12:33 | disposition home or self-care (01) ==
LOC: ONC/OP 10:55
PROVIDERS: ATTEND Internal Medicine Hematology & Oncology
DX: Z51.11 Encounter for antineoplastic chemotherapy (principal); C50.511 Malignant neoplasm of lower-outer quadrant of right female breast; Z17.1 Estrogen receptor negative status [ER-]
CPT/HCPCS: 96375; 96413; J2405

== ENCOUNTER 2020-06-17 13:53 | Day surgery (SDC) | payer MEDICARE ==
[2020-06-17 14:11] VITALS: BP 101/58; TEMP 98.1
[2020-06-17] MEDS ORDERED: Sodium Chloride 0.9% 20 ML ONE (14:25)
== END 2020-06-17 16:08 | disposition home or self-care (01) ==
LOC: ONC/OP 13:53
PROVIDERS: ATTEND Internal Medicine Hematology & Oncology
DX: Z51.11 Encounter for antineoplastic chemotherapy (principal); C50.511 Malignant neoplasm of lower-outer quadrant of right female breast
CPT/HCPCS: 96375; 96413; J2405

== ENCOUNTER 2020-06-24 11:05 | Day surgery (SDC) | payer MEDICARE ==
[2020-06-24] MEDS ORDERED: Sodium Chloride 0.9% 20 ML ONE (11:13)
[2020-06-24 12:02] VITALS: BP 122/69; TEMP 98
== END 2020-06-24 14:07 | disposition home or self-care (01) ==
LOC: ONC/OP 11:05
PROVIDERS: ATTEND Internal Medicine Hematology & Oncology
DX: Z51.11 Encounter for antineoplastic chemotherapy (principal); C50.511 Malignant neoplasm of lower-outer quadrant of right female breast; Z17.1 Estrogen receptor negative status [ER-]
CPT/HCPCS: 96375; 96413; J2405

== ENCOUNTER 2020-07-07 12:14 | Outpatient (CLI) | payer MEDICARE | END 2020-07-07 12:15 | disposition home or self-care (01) | LOC: BICRAD 12:14 | PROVIDERS: ATTEND Family Medicine | DX: J90 Pleural effusion, not elsewhere classified (principal); Z97.8 Presence of other specified devices | CPT/HCPCS: 71046 ==

== ENCOUNTER 2020-07-13 14:37 | Outpatient (CLI) | payer MEDICARE | END 2020-07-13 14:38 | disposition home or self-care (01) | LOC: BICRAD 14:37 | PROVIDERS: ATTEND Internal Medicine Hematology & Oncology | DX: M25.552 Pain in left hip (principal); C50.511 Malignant neoplasm of lower-outer quadrant of right female breast; M16.12 Unilateral primary osteoarthritis, left hip ==

== ENCOUNTER 2020-07-17 08:53 | Outpatient (CLI) | payer MEDICARE | END 2020-07-17 08:54 | disposition home or self-care (01) | LOC: NM 08:53 | PROVIDERS: ATTEND Internal Medicine Hematology & Oncology | DX: C50.511 Malignant neoplasm of lower-outer quadrant of right female breast (principal); M25.552 Pain in left hip; M54.9 Dorsalgia, unspecified | CPT/HCPCS: 78306; A9503 ==